=== PATIENT | male | born 1945 | race Caucasian/White ===

== ENCOUNTER → 2018-11-16 | Outpatient (CLI) | payer MEDICARE, SELFPAY ==
[2018-11-16 17:16] LABS: International Normalized Ratio 1.7; Prothrombin Time (Protime)PT. 19.9 SECONDS (11.7-14.9)
== END | disposition home or self-care (01) ==
PROVIDERS: Family Provider Internal Medicine; PCP Internal Medicine; Referring Provider Internal Medicine; Visit Provider Internal Medicine
DX: I82.409 Acute embolism and thrombosis of unspecified deep veins of unspecified lower extremity (principal)
CPT/HCPCS: 85610

== ENCOUNTER → 2018-11-23 09:53 | Outpatient (CLI) | payer MEDICARE, SELFPAY ==
[2018-11-23 10:15] LABS: Prothrombin Time (Protime)PT. 22.6 SECONDS (11.7-14.9)
== END ==
PROVIDERS: PCP Internal Medicine; Visit Provider Internal Medicine
DX: I82.409 Acute embolism and thrombosis of unspecified deep veins of unspecified lower extremity (principal)
CPT/HCPCS: 85610

== ENCOUNTER → 2023-07-15 | Outpatient (CLI) | payer MEDICARE, SELFPAY ==
--- NOTE | 2023-07-15 13:54 | RAD_ITS ---
PROCEDURE: Fluoroscopic guided Hip Injection DATE: July 15, 2023. INDICATION: Male, 78 years old. Chronic right hip pain. PHYSICIAN: Kuldeep Lyon M.D. MEDICATIONS: Steroid and 1% lidocaine was injected. 2% lidocaine administered subcutaneously for local anesthesia. ACCESS SITE: Right hip. NEEDLE: 22-gauge spinal needle. FLUOROSCOPY TIME (if supplied): (1:30) minutes/seconds 38.15 mGy. One image was submitted. FINDINGS: The risks, benefits, and alternatives to the procedure were explained to the patient. The specific risks of bleeding, infection, and neurovascular injury were detailed and accepted. Witnessed informed consent was obtained. A 22-gauge spinal needle was positioned under radiographic fluoroscopic localization. Approximately 2 cc of Isovue-300 instilled for localization purposes. Medication was then injected. The patient tolerated the procedure well without any immediate complications. The patient was placed supine with head elevated and returned to the floor in stable condition. RAD/Inj/Asp Sven Jt Should/Hip/Knee IMPRESSION: 1. Successful fluoroscopic guided hip injection. Electronically Signed: Kuldeep Lyon MD at 14:49 EST ,
[2023-07-15] MEDS: Lidocaine 2% (5ml sdv) 5 ML VIAL.MPF (14:11)
[2023-07-15] MEDS: Triamcinolone Acetonide 40 MG/ML Vial INTRAARTIC (14:15)
[2023-07-15] MEDS: Lidocaine 1% (5 ml sdv) 5 ML Vial 2 ML OPERA.SITE (14:15)
== END | disposition home or self-care (01) ==
LOC: RAD 13:48
PROVIDERS: PCP Internal Medicine
DX: M70.71 Other bursitis of hip, right hip (principal)
CPT/HCPCS: 20610; 77002; Q9967

== ENCOUNTER → 2024-11-10 | Outpatient (CLI) | payer MEDICARE, SELFPAY ==
--- NOTE | 2024-11-10 14:08 | RAD_ITS ---
PROCEDURE: LUMBAR SPINE 2 OR 3 VIEWS 11/10/2024 REASON FOR EXAM: DDD TECHNIQUE: 3 view(s) of the lumbar spine COMPARISON: None available FINDINGS: 5 [id number] lumbar vertebral body types identified. No fracture identified. 2 mm appearing retrolisthesis L2 on L3 with [id number] appearing disc space narrowing. 2 mm anterolisthesis L4 on L5 with mild disc space narrowing. Appearance of bilateral lower lumbar facet hypertrophic degenerative changes. Heavy aortoiliac atherosclerotic vascular calcification. Ajhdiesg-vh-tvhic anterior superior corner spur L4. RAD/Lumbar Spine 2 or 3 Views IMPRESSION: No fracture identified. Spondylosis/discogenic change with spondylolisthesis as above. Reading Location: [id number]
== END | disposition home or self-care (01) ==
LOC: RAD 14:07
PROVIDERS: PCP Internal Medicine; Referring Provider Anesthesiology Pain Medicine; Visit Provider Anesthesiology Pain Medicine
DX: M51.369 Other intervertebral disc degeneration, lumbar region without mention of lumbar back pain or lower extremity pain (principal)
CPT/HCPCS: 72100

== ENCOUNTER → 2024-12-13 | Outpatient (CLI) | payer MEDICARE, SELFPAY ==
--- NOTE | 2024-12-13 12:01 | MRI_ITS ---
PROCEDURE: SPINE LUMBAR (ROUTINE) 12/13/2024 REASON FOR EXAM: RADICULOPATHY TECHNIQUE: Multiplanar and multisequence images were obtained without IV contrast administration. FINDINGS: Normal lumbar vertebral body height without compression deformity. Normal conus. No marrow edema. No neoplastic marrow replacement. Subtle grade 1 subluxation of L4 upon L5. T12-L1 unremarkable. Subtle annular bulging at L1-2 without spinal stenosis. Subtle retrolisthesis of L2 upon L3 with mild facet arthrosis and degenerative annular bulging eccentric to the right without foraminal impingement. At L3-4 there is a left paracentral protrusion extending superiorly on the left side which could encroach on the left L3 nerve root within the proximal portion of the neural foramen. Correlate clinically for left L3 radiculopathy. Moderate canal narrowing at the level of the disc space. At L4-5 moderate to severe circumferential spinal canal narrowing from facet degeneration, ligamentous hypertrophy and concentric disc bulge with moderate nrzek-gynucrc-cria-left L4 foraminal stenosis. The L5-S1 level demonstrates arthrosis of the facet joints MRI/Spine Lumbar (Routine) IMPRESSION: 1. Grade 1 anterolisthesis of L4 upon L5 and retrolisthesis of L2 upon L3. 2. Left paracentral protrusion migrating superiorly on the left at L3-4 with po tential encroachment on the left L3 nerve root sleeve within the proximal neural foramen. Moderate spinal stenosis. 3. Moderate to severe spinal stenosis at L4-5 Reading Location: [facility]
== END | disposition home or self-care (01) ==
LOC: MRI 11:49
PROVIDERS: PCP Internal Medicine; Referring Provider Anesthesiology Pain Medicine; Visit Provider Anesthesiology Pain Medicine
DX: M54.16 Radiculopathy, lumbar region (principal)
CPT/HCPCS: 72148